=== PATIENT | female | born 1995 | race Caucasian/White ===

== ENCOUNTER 2016-12-25 09:53 | Emergency (ER) | payer SELFPAY ==
[~2016-12-25] VITALS: Ht 160 cm; Wt 79.4 kg
--- NOTE | 2016-12-25 10:35 | ED GI/GU/ABDOMINAL COMPLAINT ---
History of Present Illness General Chief Complaint: Female Urogenital Problems Stated Complaint: ?YEAST INFECTION PER PT Source: patient, family, old records Exam Limitations: no limitations Vital Signs & Intake/Output Vital Signs & Intake/Output Vital Signs Date Time Temp Pulse Resp B/P B/P Pulse O2 O2 Flow FiO2 Mean Ox Delivery Rate 12/25 0958 97.4 75 20 127/82 98 Room Air Allergies Coded Allergies: No Known Allergies (12/25/16) Reconcile Medications Fluconazole (Diflucan) 100 MG TABLET 1 TAB PO BID YEAST INFECTION Triage Note: PT TO ED C/O ? YEAST INFECTION. STATES SHE HAS HAD THE SAME IN THE PAST. USED MONISTAT CREAM LAST NIGHT. STATES PAIN IS WORSE TODAY, ALSO C/O "ODOR". Triage Nurses Notes Reviewed? yes ? N Is pt currently ? No HPI: Patient states that she has been having intermittent niece infections for the past 3 months. She states that yesterday she again developed vaginal irritation with thick white discharge. Patient used Monistat her symptoms seemed worse. There is no dysuria. There is no abdominal pain. There is no fevers or chills. Past History Travel History Traveled to [place] past 21 day No Medical History Any Pertinent Medical History? none Surgical History Surgical History: non-contributory Psychosocial History What is your primary language Macedonian Tobacco Use: Never used ETOH Use: denies use Illicit Drug Use: denies illicit drug use Family History Hx Contributory? No Review of Systems Review of Systems Constitutional: Reports: no symptoms. Respiratory: Reports: no symptoms. Cardiovascular: Reports: no symptoms. GI: Reports: no symptoms. Genitourinary: Reports: see HPI. Neurological/Psychological: Reports: no symptoms. Immunologic/Allergic: Reports: no symptoms. Physical Exam Physical Exam General Appearance: well developed/nourished, alert, awake Eyes: Bilateral: PERRL, EOMI. Neck: normal inspection, supple, full range of motion Respiratory: normal breath sounds, chest non-tender, no respiratory distress, lungs clear Cardiovascular: regular rate/rhythm, normal peripheral pulses Gastrointestinal: normal bowel sounds, soft, non-tender, no organomegaly Pelvic: no cerv. motion tender, discharge (THICK WHITE) Extremities: normal range of motion Neurologic/Psych: no motor/sensory deficits, awake, alert, oriented x 3, normal gait, normal mood/affect Core Measures ACS in differential dx? No Severe Sepsis Present: No Septic Shock Present: No Progress Differential Diagnosis: PID/cervicitis, YEAST Plan of Care: Orders Procedure Date/time Status URINE 12/25 1016 Complete URINALYSIS 12/25 1016 Complete Laboratory Tests 12/25/16 1033: Urine Color YEL, Urine Clarity HAZY H, Urine pH 6.0, Ur Specific [place] 1.020, Urine Protein TRACE H, Urine Ketones NEG, Urine Nitrite NEG, Urine Bilirubin NEG, Urine Urobilinogen 0.2, Ur Leukocyte Esterase LARGE H, Ur Microscopic SEDIMENT EXAMINED, Urine RBC RARE, Urine WBC 1-3 H, Ur Epithelial Cells MOD H, Urine Bacteria MOD H, Micro UA Comment BUDDING YEAST H, Urine Hemoglobin NEG, Urine Glucose NEG, Urine Test NEGATIVE Initial ED EKG: none Departure Departure Disposition: HOME OR SELF CARE Condition: Stable Clinical Impression Primary Impression: Yeast vaginitis Referrals: PATIENT HAS NO PRIMARY CARE DR (PCP/Family) Additional Instructions: DRINK PLENTY OF FLUIDS RETURN IF SYMPTOMS WORSEN OR FOR ANY CONCERNS Departure Forms: Customer Survey General Discharge Information Prescriptions: Current Visit Scripts Fluconazole (Diflucan) 1 TAB PO BID #10 TAB
[2016-12-25] MEDS ORDERED: DIFLUCAN100 M1 PO (11:21)
[2016-12-25 11:23] VITALS: BP 126/74
== END 2016-12-25 11:34 ==
LOC: ERH 09:53
DX: B37.3 Candidiasis of vulva and vagina (principal)
CPT/HCPCS: 87070; 81001; 81025; 87491; 87591